=== PATIENT | female | born 2000 | race African-American/Black ===

== ENCOUNTER 2024-07-05 15:53 | Emergency (ER) | payer MEDICAID ==
[~2024-07-05] VITALS: Ht 177.8 cm; Wt 70.2 kg
[2024-07-05 15:57] VITALS: BP 111/78; PULSE 78; RESP 14; TEMP 98.3; O2SAT 100
== END 2024-07-05 16:44 | disposition home or self-care (01) ==
LOC: ER 15:54
DX: Z00.00 Encounter for general adult medical examination without abnormal findings (principal)
CPT/HCPCS: 99284